=== PATIENT | female | born 1995 | race Caucasian/White ===

== ENCOUNTER 2023-10-18 15:03 | Outpatient (CLI) | payer MEDICAID, SELFPAY ==
[2023-10-18 12:23] LABS: Abs Immature Grans 0.02 10^3/uL (0.0-0.06); Absolute Basophil Count 0.04 10^3/uL (0.0-0.2); Absolute Eosinophil Count 0.26 10^3/uL (0.0-0.7); Absolute Lymphocyte Count 3.22 10^3/uL (1.2-3.4); Absolute Monocyte Count 0.51 10^3/uL (0.1-0.8); Absolute Neutrophil Count 3.92 10^3/uL (1.2-6.7); Basophils % 0.5; Eosinophils % 3.3; HCT 38.1 % (36.0-46.0); HGB 11.9 g/dL (11.2-15.7); Immature Grans % 0.3; Lymphocytes % 40.4; MCH 24.8 pg (27.0-33.0); MCHC 31.2 % (32.0-36.0); MCV 79 fL (80-95); MPV 8.8 fL (8.0-11.0); Monocytes % 6.4; Neutrophils % 49.1; Platelet Count 461 10^3/uL (130-400); RDW 14.7 % (11.7-14.6); RDW-SD 42.6 fL; WBC 7.97 10^3/uL (4.4-10.8)
[2023-10-18 12:56] LABS: ALT 18 U/L (14-59); AST 19 U/L (15-37); Albumin 3.9 g/dL (3.4-5.0); Alkaline Phosphatase 50 U/L (46-116); Anion Gap 5.3 mmol/L (3-11); BUN 11 mg/dL (7-18); Bilirubin, Total 0.4 mg/dL (0.2-1.0); CO2 27.7 mmol/L (21.0-32.0); CREATININE 0.7 mg/dL (0.55-1.02); Calcium 9.2 mg/dL (8.5-10.1); Chloride 107 mmol/L (98-107); Estimated GFR 123.01 (mL/min/1.73m2); Ferritin 11 ng/mL (8-252); Glucose 89 mg/dL (74-106); Potassium 4.3 mmol/L (3.5-5.1); Sodium 140 mmol/L (136-145); TSH (W/Ref FT4) 2.05 uIU/mL (0.36-3.74); Total Protein 7.7 g/dL (6.4-8.2)
[2023-10-18 13:08] LABS: C-Reactive Protein < 0.50 mg/dL (<or=0.5)
[2023-10-19 14:18] LABS: IgA 148 mg/dL (85-499); Interpretation (See Note); Tissue Transglutaminase IgA <4.0 CU (<20.0)
== END 2023-10-18 15:04 | disposition home or self-care (01) ==
LOC: LBO 15:03
PROVIDERS: PCP Internal Medicine; Visit Provider Surgery
DX: K80.20 Calculus of gallbladder without cholecystitis without obstruction; R21 Rash and other nonspecific skin eruption; F31.9 Bipolar disorder, unspecified; I10 Essential (primary) hypertension; K58.9 Irritable bowel syndrome, unspecified; M54.16 Radiculopathy, lumbar region; K58.1 Irritable bowel syndrome with constipation
CPT/HCPCS: 36415; 80053; 82784; 83516; 82728; 84443; 85025; 86140

== ENCOUNTER 2023-11-08 16:25 | Outpatient (REF) | payer MEDICAID, SELFPAY ==
[2023-11-12 13:13] LABS: Calprotectin <50.0 mcg/g
== END 2023-11-08 16:26 | disposition home or self-care (01) ==
LOC: LBN 16:25
PROVIDERS: PCP Internal Medicine; Visit Provider Surgery
DX: K80.20 Calculus of gallbladder without cholecystitis without obstruction (principal); R21 Rash and other nonspecific skin eruption; F31.9 Bipolar disorder, unspecified; I10 Essential (primary) hypertension; K58.9 Irritable bowel syndrome, unspecified; M54.16 Radiculopathy, lumbar region; L73.9 Follicular disorder, unspecified; K58.1 Irritable bowel syndrome with constipation
CPT/HCPCS: 83993

== ENCOUNTER 2023-11-20 07:07 | Day surgery (SDC) | payer MEDICAID, SELFPAY ==
[2023-11-20] VITALS (12 sets, daily range): BP systolic 109–130; BP diastolic 57–87; PULSE 51–80; RESP 16–22; TEMP 36.3–36.6; O2SAT 99–100; BMI 34.0
--- NOTE | 2023-11-20 07:07 | W.ANESPRE ---
General Info Date of Service Date Performed: 11/20/23 Height: 5 ft 2 in Weight: 84.368 kg Body Mass Index (BMI): 34.0 Surgical Procedure: Operation Date: 11/20/23 08:40 Proposed Procedure Side Surgeon p Cholecystectomy Laparoscopic, Possible Open Cee Barger, Meds Allergies and Home Medications Allergies Allergy/AdvReac Type Severity Reaction Status Date / Time Penicillins Allergy Severe Anaphylaxis Verified 11/20/23 07:17 Home Medication Medication Instructions Recorded lactulose 10 gram/15 mL oral 15 ml PO Q6H PRN PRN 10/16/23 solution clindamycin phosphate 1 % topical 1 applic topical BID 10/18/23 solution fenugreek seed extract 500 mg 500 mg PO DAILY 10/18/23 capsule inositol 750 mg capsule 750 mg PO DAILY 10/18/23 Current Visit Medications: Current Medications Generic Name Dose Route Start Last Admin Trade Name Freq PRN Reason Stop Dose Admin Acetaminophen 1,000 mg 11/20/23 06:00 Acetaminophen 500 Mg Tab PO 11/20/23 16:00 PREOP GERMÁN Gabapentin 600 mg 11/20/23 06:00 Gabapentin 300 Mg Cap PO 11/20/23 16:00 PREOP GERMÁN Ringer's Solution 1,000 mls @ 80 mls/hr 11/20/23 06:00 IV 12/19/23 23:59 INFUSION GERMÁN Clindamycin Phosphate/Dextrose 600 mg in 50 mls @ 100 mls/hr 11/20/23 06:59 Cleocin In D5w IVPB 11/20/23 07:28 PREOP ONE IV Miscellaneous Supplies 1 each 11/20/23 06:00 Iv Access IV 12/19/23 23:59 DIRECTED GERMÁN Sodium Chloride 0 ml 11/20/23 06:00 Normal Saline Flush 10 Ml Syr IV 12/19/23 23:59 PRN PRN Sodium Chloride 0 ml 11/20/23 06:00 Normal Saline 10 Ml Vial IJ 12/19/23 23:59 DIRECTED PRN Sterile Water 0 ml 11/20/23 06:00 Water,Injection,Sterile 10 Ml Vial IJ 12/19/23 23:59 DIRECTED PRN PFSH Active Problems Active Problems: Problem Status Onset Code Irritable bowel syndrome with constipation K58.1 Rash and nonspecific skin eruption R21 Gallstones without obstruction of gallbladder K80.20 Radiculopathy, lumbar region M54.16 Irritable bowel syndrome without diarrhea K58.9 Bipolar disorder F31.9 Essential hypertension I10 Follicular disorder L73.9 Medical History Medical History GERD (gastroesophageal reflux disease) PTSD (post-traumatic stress disorder) Pt. denies any types of triggers Tobacco Smoking/Tobacco Use Status: Never Alcohol Alcohol Intake: never Substance Use Substance use: Rarely Substance use type: marijuana Vital Signs and Lab Results Lab Results Blood Type / Crossmatch: No Data to Display Complete Blood Count: No Data to Display Complete Metabolic Panel: No Data to Display Liver Function Panel: No Data to Display Coagulation Panel: No Data to Display Cardiac Panel: No Data to Display Arterial Blood Gas: No Data to Display Venous Blood Gas: No Data to Display Pancreas Panel: No Data to Display Thyroid Panel: No Data to Display Infectious Disease: No Data to Display Blood Cultures: No Data to Display Toxicology Panel: No Data to Display Panel: No Data to Display Anesthesia Assessment and Plan Anesthesia History Personal History: No History of Anesthesia Complications Family History: No Family History of Anesthesia Complications Exercise Tolerance Exercise Tolerance: Metabolic Equivalents>4 Pertinent Negatives Pertinent Negatives: No Symptoms of GERD, No Major Cardiovascular Symptoms or Complaints, No Major Pulmonary Symptoms or Complaints and No History of CVA/TIA Cardiac & Pulmonary Exam Cardiac Exam: Normal S1/S2 Heart Sounds Pulmonary Exam: Clear Bilateral Breath Sounds Implantable Cardiac Device Does patient have a Pacemaker or an ICD?: No Airway Exam Known Difficult Airway: No Mallampati Class: 1 Mouth Opening: Normal (> 3cm) Thyromental Distance: Greater than 3 cm Neck Range of Motion: Full ROM Neck Circumference: Normal Teeth Condition: Normal Dentition ASA Classification ASA Score: ASA 2 Emergency Case?: No NPO Status NPO Status: NPO Clears >2 hours, Solids >8 hours Status Status: Negative HCG Anesthesia Plan Resuscitation Status: Full Code Anesthesia Technique: General Anesthesia Airway Planned: Endotracheal Tube Monitors Used: Standard Monitors
[2023-11-20] MEDS: Gabapentin 300 MG CAP 600 MG PO (07:38)
[2023-11-20] MEDS: Lactated Ringers 1,000 ML 80 ML IV (07:38)
[2023-11-20] MEDS: Acetaminophen 500 MG TAB 1000 MG PO (07:39)
[2023-11-20] MEDS: CLINDAMYCIN 600 MG/50 ML BAG 100 MG IVPB (08:44)
[2023-11-20] MEDS: Indocyanine green 25 MG VIAL (09:02)
[2023-11-20] MEDS: Bupivacaine 0.25% Pres-Free W/EPI 30 ML VIAL (09:14)
--- NOTE | 2023-11-20 09:40 | GB_PTH ---
PATIENT: Niya Nguyen LOC: [facility] U#:[id number] AGE/SX: 28/F ROOM: RE11/20/[address]: Cee Barger : 1995 BED: DIS: 11/20/2023 SPEC #: [id number] RECD: 11/20/23 12:50 STATUS: NINI REQ #: [id number] ANAYELI: 11/20/23 09:[address]: Cee Barger DEPT: Surgical Specimen RECD BY: Raeann Mcdaniels ENTERED: 11/20/23 12:50 SP TYPE: GB OTHR DR: Susan Little Tissues: 1 - GALLBLADDER Procedures: GROSS AND MICRO LEVEL 3 Comments: [id number]
--- NOTE | 2023-11-20 10:16 | PDOC.DSDIS_ITS ---
Date of service: 11/20/23 Time of Service: 10:21 Discharge Plan Disposition Patient Disposition: Home Condition: Good Discharge Details Reason For Visit: GB removal Attending Provider: Cee Barger Primary Care Provider: Susan Little Home Meds and New Rx's Prescriptions: New ondansetron HCl 4 mg tablet 4 mg PO Q8H PRN4 Days Qty: 7 0RF tramadol 50 mg tablet 50 mg PO Q4H PRNQty: 14 0RF Continued lactulose 10 gram/15 mL solution 15 ml PO Q6H PRN PRN clindamycin phosphate 1 % solution 1 applic topical BID inositol 750 mg capsule 750 mg PO DAILY fenugreek seed extract 500 mg capsule 500 mg PO DAILY Discharge Instructions Additional Instructions: Care after Gallbladder Surgery -Pain control: ?For the first 72 hours after surgery, take your pain meds continuously, and not just when you have pain.?? Alternate Tylenol 1000mg by mouth every 8 hours, and Ibuprofen 600mg every 6 hours.? Make sure you take ibuprofen with food and not on an empty stomach.? ??Use the tramadol for breakthrough pain- pain that is greater than a 7. ?- Use ICE! Ice really helps to keep the swelling down, and swelling causes pain. ??Twenty minutes on, and then off, continuously for the first 72hours.? After the first 72hrs, you can just use the Tylenol, ibuprofen or Celebrex, and ice, when you have pain.?? If you are taking narcotic pain medication, follow the instructions on the label and do not drive. Pain medications can make you very constipated. Make sure you are moving your bowels daily. If not, take Miralax. - Anesthesia makes you very constipated.? Take a dose of Miralax the morning after surgery. ? Use an ice bag for the first 72 hours. This helps to decrease swelling, which causes pain. It is normal to be more sore/painful and swollen towards the end of the day and first thing in the morning. ? Gallbladder surgery can make you very nauseated; use Zofran for nausea, for the first 24 hours. The nausea generally stops after 24 hours. ? Use Miralax or prune juice to prevent constipation (this is a particular side effect of pain medication and anesthesia). Do not allow yourself to become constipated. ? Avoid fatty or greasy foods; introduce these slowly, with care, after about 1 month. High-fat foods include: ? Foods that are fried, like Persian fries and potato chips ? High-fat meats, such as bird, bologna, sausage, ground beef, and ribs, pork products ? High-fat dairy products, such as cheese, ice cream, cream, whole milk, and sour cream ? Pizza ? Foods made with lard or butter ? Creamy soups or sauces ? Meat gravies ? Chocolate ? Oils, such as palm and coconut oil ? Skin of chicken or turkey ? Nuts and nut butters ? Avocadoes ? Start out eating very small, bland amounts of food. Do not take pain pills on an empty stomach. - You will notice purple discoloration around the incisions.? This is the ?skin glue?.? This will wear off on its own.? It is OK to shower after 24hrs.? You do not need to cover the incisions. -You should walk frequently, gradually, increasing the distance. You may climb stairs, just go slowly. ? Do not go swimming or sit in a hot tub for two weeks. ? There are no stitches to remove. ? Do not drive your car x72hrs and then only if you have no pain and can move freely. Do not drive if you are taking pain narcotic pain medications. ? You may resume sexual activity whenever pain and soreness subside, usually in 2 weeks. ? Do no lift anything over 5 lbs. for two weeks. ? You may return to work in one week, or when you feel able, provided you do not have to do any heavy lifting or prolonged standing. ? You should return to Dr. Barger?s office for a post-op appointment about two weeks after surgery. A follow-up should have been scheduled for you already.? If there is not, please call the Surgical [facility] at: [phone] to schedule an appointment. My Medications for pain and nausea are: Tylenol/ibuprofen ?and ultram- for severe pain ?and Zofran-nausea When to Call the Office: ? If the incision becomes red or swollen, or there is more than a little drainage from it. ? If you develop a temperature higher than 100.5 F. ? If your eyes turn yellow ? Vomiting and can?t keep fluids down Activity:: see above Remove Dressings/Wound Care:: 24 hours Shower/Bathe:: 24 hours Diet:: see above DS: Diagnosis Discharge Diagnosis (1) Bipolar disorder: Status: Acute (2) Gallstones without obstruction of gallbladder: Status: Acute Asessment and Plan: The patient is doing well post-op from their [] surgery.? They are having no nausea or vomiting. They are tolerating liquids and a snack. The pt is not having any chest pain or SOB.? Their pain is adequately controlled. They have been able to urinate.? ?HEENT:? no eye pain/drainage/redness/swelling. Mild sore throat ?Cardio- NSR, no chest pain, BP stable- see VS record ?Pulm: no sob or productive cough. No hemoptysis ?Incision- dressing is c/d/i w/ no excessive bleeding or drainage ?I discussed with the patient the findings at the time of surgery and the patient?s progress. ?We reviewed expectations at home; what the patient could expect for recovery time, and in the post-operative period.? We discussed the importance of walking to avoid blood clots and pneumonia.? We discussed and reviewed the patient's post-operative wound care and dressing needs.?? We reviewed their step-han pain management plan, Rx called to the pharmacy of their choice.? We reviewed activity and limitations-see discharge instructions. We reviewed warning signs, and when to seek medical attention- see d/c instructions.?? Patient was given a postoperative follow-up appointment. Patient verbalized understanding of their postoperative instructions, how do to take care of themselves and their incision, and the pain management plan. Please see discharge instructions.? (3) GERD (gastroesophageal reflux disease): (4) PTSD (post-traumatic stress disorder):
--- NOTE | 2023-11-20 10:25 | W.PM.OP ---
Date of service: 11/20/23 Time of Service: 10:25 Operative Note Operative Note DATE OF PROCEDURE: 11/20/23 PRE-OP DIAGNOSIS: gallstones POST-OP DIAGNOSIS: same PROCEDURE: lap abdiaziz SURGEON: Cee Ernst POLICE RESERVES COMMANDER: Brit Montoya ANESTHESIA TYPE: Local By Surgeon and General LMA/ETT Refer to Anesthesia Record ESTIMATED BLOOD LOSS: 5 PATHOLOGY: other COMPLICATIONS: None Patient was transported to: PACU Patient's condition: stable Procedure Description: The pt is seen at the request of there PCP regarding acute on chronic cholecystitis, cholelithiasis. The pt has failed outpt conservative medical measures and is here today for laparoscopic cholecystectomy. Informed consent was obtained, explaining risks and benefits of the procedure including but not limited to bleeding, infection, pneumonia, blood clots, possible damage to bowel, bladder, blood vessels, bile ducts, possible open procedure, complications of general anesthesia and other unforetold complications. PROCEDURE: The patient agrees and is brought to the operative room suite and placed in supine position. Pt receives IV ICG preOp to aid w/ bile duct visualization.? Anesthesia was administered per the Department of Anesthesia. The patient did receive IV antibiotics. NG tube and Sawyer catheter are placed. The patient was prepped and draped in the usual sterile fashion using DuraPrep scrub solution. Pause for the cause was done. 20 mL of 1% buffered lidocaine was used for local anesthetization. A stab incision was made in the umbilicus and the Verres inserted. Drop test was positive and insufflation was begun. When 15 mm of pressure was noted on the monitor, the Veress was removed and #10 port inserted. The camera was inserted through the port and shows no damage to underlying structures. A 5 mm port was then placed in the epigastric position under direct visualization following creation of local field blocks as well as two 5 mm ports in the right upper quadrant. The camera was moved to one of the secondary ports so we could view the umbilical trocar site, and there is are no hernias or adhesions. The gallbladder fundus was grasped and retracted towards the right shoulder. Infundibulum was grasped and retracted laterally. The hepat-duodenal ligament is entered. The cystic duct and artery are dissected out and the most inferior portion of the gallbladder plate is removed from the liver and the critical view of safety was obtained after clearing away all fatty material. Endo Clips were placed across the duct and artery and these structures are divided. The remainder of the gallbladder was excised from the liver bed. The gallbladder was placed in a bag and brought out. Examination of the gallbladder shows indeed the cystic duct and artery to have been divided. The remainder of the abdomen was copiously irrigated with a liter of saline. All saline is removed. There is no bleeding or bile leakage from the liver bed or the clips sites. Umbilical port site is closed O-Vicryl in an interrupted fashion. all ports and instruments are removed. SPonge and needle counts are correct. Pneumoperitoneum is evacuated and the port sites are monitored to make sure there is no bleeding at the time of desufflation. ??Port sites are irrigated and the skin is closed with 4-0 Monocryl in a running subcuticular fashion. Skin glue sterile dressings are applied. The patient tolerated the procedure well without complications, transferred to the recovery room in stable condition. CEE ERNST, DO
[2023-11-20] MEDS: fentaNYL 100 MCG/2 ML VIAL IVP (10:38)
[2023-11-20] MEDS: Droperidol 5 MG/2 ML VIAL 0.625 MG IVP (10:59)
--- NOTE | 2023-11-20 11:22 | W.ANESPOSTOP ---
Postoperative Evaluation Date, Time and Location Date Performed: 11/20/23 Time Performed: 11:22 Patient Location: PACU Vital Signs Most Recent Imported Vital Signs: Most Recent Vital Signs Temp Pulse Resp BP Pulse Ox 36.4 C L 57 L 16 117/71 100 11/20/23 10:55 11/20/23 11:10 11/20/23 11:10 11/20/23 11:10 11/20/23 11:10 Pain Score Most Recent Pain Score: Most Recent Pain Score Pain Level 6 11/20/23 10:55 Assessment Mental Status: Arousable with meaningful communication Airway and Respiratory Function: Patent airway with normal (patient baseline) respiratory exam Cardiovascular Function: Hemodynamically Stable Hydration Status: Adequately Hydrated Nausea & Vomiting: No Nausea or Vomiting (pt received IV antiemetic- see MAR) Pain: Pain is tolerable per patient (pt received IV pain medication- see MAR) Peripheral Nerve Block: Patient did not receive a nerve block
[2023-11-20] MEDS: Ondansetron 4 MG/2 ML VIAL IVP (13:10)
[2023-11-20] MEDS: Ketorolac 15 MG/ML VIAL IVP (13:19)
== END 2023-11-20 15:03 | disposition home or self-care (01) ==
PROVIDERS: PCP Internal Medicine; Visit Provider Surgery
PROC: 0FT44ZZ Resection of Gallbladder, Percutaneous Endoscopic Approach (ICD-10-PCS; CPT 47562; principal; 2023-11-20 08:30)
DX: K80.20 Calculus of gallbladder without cholecystitis without obstruction; K21.9 Gastro-esophageal reflux disease without esophagitis; F31.9 Bipolar disorder, unspecified; F43.10 Post-traumatic stress disorder, unspecified
CPT/HCPCS: 47562; 81025; 88304; J0737; J1100; J1790; J1885; J2001; J2250; J2405; J2704; J3010

== ENCOUNTER 2025-04-21 16:22 | Outpatient (REF) | payer MEDICAID, SELFPAY ==
[2025-04-21 19:39] LABS: HCT 35.3 % (36.0-46.0); HGB 10.9 g/dL (11.2-15.7); MCH 24.3 pg (27.0-33.0); MCHC 30.9 % (32.0-36.0); MCV 79 fL (80-95); MPV 9.4 fL (8.0-11.0); Platelet Count 456 10^3/uL (130-400); RBC 4.49 10^6/uL (3.93-5.22); RDW 15.2 % (11.7-14.6); RDW-SD 42.9 fL; WBC 6.53 10^3/uL (4.4-10.8)
[2025-04-21 19:42] LABS: ESR 10 mm/hr (0-20)
[2025-04-21 20:16] LABS: ALT 23 U/L (14-59); AST 19 U/L (15-37); Albumin 3.9 g/dL (3.4-5.0); Alkaline Phosphatase 57 U/L (46-116); Anion Gap 8.6 mmol/L (3-11); BUN 13 mg/dL (7-18); Bilirubin, Total 0.2 mg/dL (0.2-1.0); CO2 26.4 mmol/L (21.0-32.0); Calcium 9.3 mg/dL (8.5-10.1); Chloride 104 mmol/L (98-107); Cholesterol 154 mg/dL (<200); Estimated GFR 121.49 (mL/min/1.73m2); Glucose 64 mg/dL (74-106); Potassium 3.7 mmol/L (3.5-5.1); Sodium 139 mmol/L (136-145); TSH (W/Ref FT4) 2.22 uIU/mL (0.36-3.74); Total Protein 7.6 g/dL (6.4-8.2); Triglyceride 35 mg/dL (<150)
[2025-04-21 20:41] LABS: Hemoglobin A1C 5.2 % (<5.7)
[2025-04-22 04:58] LABS: Calculated LDL 87 mg/dL (<100); HDL Cholesterol 60 mg/dL (>or=50)
[2025-04-22 05:06] LABS: C-Reactive Protein 0.61 mg/dL (<or=0.5)
== END 2025-04-21 16:23 | disposition home or self-care (01) ==
LOC: NCHCN 16:22
PROVIDERS: PCP Internal Medicine; Visit Provider Physician Assistant
DX: Z13.1 Encounter for screening for diabetes mellitus (principal); F31.60 Bipolar disorder, current episode mixed, unspecified; Z13.220 Encounter for screening for lipoid disorders; K58.9 Irritable bowel syndrome, unspecified
CPT/HCPCS: 80053; 80061; 85027; 85652; 86364; 83036; 84443; 86140